=== PATIENT | female | born 1955 | race Caucasian/White ===

== ENCOUNTER 2017-01-09 16:56 | Outpatient (CLI) | payer MEDICARE, MEDICAID ==
--- NOTE | 2017-01-10 09:47 | XRAY Report ---
TWO-VIEW CHEST: 01/09/2017 CLINICAL INDICATION: Cough. FINDINGS: Frontal and lateral views of the chest demonstrate a small hiatal hernia. The cardiac jb houette is not enlarged. The lungs are hyperinflated, compatible with COPD. No focal consolidation, effusion, or pneumothorax is present. IMPRESSION: HYPERINFLATION, SUGGESTIVE OF COPD. SMALL HIATAL HERNIA. JOB #: [id number] EXT JOB #:[id number]
== END 2017-01-09 16:57 | disposition home or self-care (01) ==
LOC: DI 16:56
PROVIDERS: ATTEND Internal Medicine
DX: R05 Cough (principal); K44.9 Diaphragmatic hernia without obstruction or gangrene
CPT/HCPCS: 71020

== ENCOUNTER 2017-01-10 15:28 | Outpatient (CLI) | payer MEDICARE, MEDICAID ==
[2017-01-10 15:54] LABS: CREATININE 1.1 mg/dL (0.4-1.0)
== END 2017-01-10 15:29 | disposition home or self-care (01) ==
LOC: LAB 15:28
PROVIDERS: ATTEND Nurse Practitioner Family
DX: B35.1 Tinea unguium (principal); B35.3 Tinea pedis; Z79.899 Other long term (current) drug therapy
CPT/HCPCS: 36415; 82565; 84450; 84460

== ENCOUNTER 2017-11-24 08:05 | Day surgery (SDC) | payer MEDICARE, MEDICAID ==
[2017-11-24] MEDS ORDERED: LACTATED RINGERS 1,000 ML IV ONE (09:07)
[2017-11-24] MEDS ORDERED: fentaNYL 250 MCG/5 ML VIAL IVP ONE (09:30)
[2017-11-24] MEDS ORDERED: MIDAZOLAM 2 MG/2 ML VIAL IVP ONE (09:30)
[2017-11-24 10:57] VITALS: BP 111/77
== END 2017-11-24 08:06 | disposition home or self-care (01) ==
LOC: SDS 08:05
PROVIDERS: ATTEND Surgery
PROC: 0DBN8ZZ Excision of Sigmoid Colon, Via Natural or Artificial Opening Endoscopic (ICD-10-PCS; 2017-11-24)
PROC: 0DBP8ZZ Excision of Rectum, Via Natural or Artificial Opening Endoscopic (ICD-10-PCS; principal; 2017-11-24 09:00)
DX: K52.9 Noninfective gastroenteritis and colitis, unspecified (principal); K57.30 Diverticulosis of large intestine without perforation or abscess without bleeding; D12.5 Benign neoplasm of sigmoid colon; K62.1 Rectal polyp; F17.210 Nicotine dependence, cigarettes, uncomplicated; I10 Essential (primary) hypertension
CPT/HCPCS: 45385; J3010; J7120

== ENCOUNTER 2018-07-29 16:12 | Emergency (ER) | payer MEDICARE, MEDICAID ==
--- NOTE | 2018-07-29 16:27 | ED Physician Documentation ---
PD HPI URI - Stated complaint Stated Complaint: TIGHNESS CHEST,COUGH,DIZZY - History obtained from History obtained from: Patient - History of Present Illness Timing - onset: Other (This is a 63-year-old long-standing smoker who had runny nose and sore throat and as of last night has minimally productive cough and worries about pneumonia. She denies shortness of breath or fevers.) Review of Systems Constitutional: denies: Fever, Chills, Myalgias Nose: reports: Rhinorrhea / runny nose Cardiac: reports: Chest pain / pressure (only with cough) Respiratory: reports: Cough. 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: Hysterectomy Neuro: Craniotomy HEENT: Other Derm: Other - Present Medications Home Medications: Ambulatory Orders Medication Instructions Recorded Confirmed Carvedilol 6.25 mg PO DAILY 11/21/17 11/24/17 Cholecalciferol [Vitamin D3] 5,000 units PO DAILY 11/21/17 11/24/17 Citalopram Hydrobromide 2 mg PO DAILY 11/21/17 11/24/17 [Citalopram HBr] Lisinopril 5 mg PO DAILY 11/21/17 11/24/17 Lorazepam [Ativan] 1 mg PO TID 11/21/17 11/24/17 Omeprazole [PriLOSEC] 20 mg PO DAILY 11/21/17 11/24/17 Spironolactone 25 mg PO DAILY 11/21/17 11/24/17 Multivitamin [Multiple Vitamins] 1 DAILY 11/24/17 Albuterol Sulf [Ventolin Hfa 1 - 2 puffs INH Q4HR PRN #1 inhaler 07/29/18 Inhaler] Azithromycin [Zithromax] 1 tab PO DAILY #6 tablet 07/29/18 guaiFENesin/CODEINE [Robitussin AC] 5 - 10 ml PO Q6H PRN #120 ml 07/29/18 - Allergies Allergies/Adverse Reactions: Allergies Allergy/AdvReac Type Severity Reaction Status Date / Time Penicillins Allergy Rash Verified 11/21/17 10:49 bacitracin AdvReac Unknown Verified 11/21/17 10:49 [From Neosporin ([id number])] mold AdvReac Respiratory Verified 11/21/17 10:49 neomycin AdvReac Unknown Verified 11/21/17 10:49 [From Neosporin (ekg-ojp-hifac)] polymyxin B AdvReac Unknown Verified 11/21/17 10:49 [From Neosporin ([id number]-[id number]-wnhsx)] PD ED PE NORMAL - Vitals Vital signs reviewed: Yes (Unremarkable) - General General: Alert and oriented X 3, No acute distress - HEENT HEENT: Pharynx benign, Other (ROm) - Neck Neck: Supple, no meningeal sign, No bony TTP - Cardiac Cardiac: RRR, No murmur - Respiratory Respiratory: Other (Mild bibasilar rhonchi and expiratory wheezes without focal findings) - Abdomen Abdomen: Non tender - Extremities Extremities: No edema, No calf tenderness / cord - Neuro Neuro: Alert and oriented X 3, Normal speech PD MEDICAL DECISION MAKING - ED course ED course: 63-year-old woman who is a long-standing smoker presents with what sound like bronchitis associated with right otitis media. There may or may not be some underlying COPD but there is no evidence of pneumonia. She is treated with Zithromax, albuterol, and codeine. Departure - Departure Disposition: 01 Home, Self Care Clinical Impression: Bronchitis ROM (right otitis media) Qualifiers: Otitis media type: suppurative Chronicity: acute Recurrence: non-recurrent Spontaneous tympanic membrane rupture: without spontaneous rupture Qualified Code(s): H66.001 - Acute suppurative otitis media without spontaneous rupture of ear drum, right ear Condition: Good Record reviewed to determine appropriate education?: Yes Instructions: ED Bronchitis Asthmatic, ED Smoking Cessation Prescriptions: Albuterol Sulf [Ventolin Hfa Inhaler] 1 - 2 puffs INH Q4HR PRN #1 inhaler PRN Reason: Shortness Of Air/Wheezing Azithromycin [Zithromax] 1 tab PO DAILY #6 tablet guaiFENesin/CODEINE [Robitussin AC] 5 - 10 ml PO Q6H PRN #120 ml PRN Reason: Cough Comments: Call your doctor to arrange a follow-up appointment, make the next available a ppointment. In the interim, return anytime if worse or if new symptoms develop.
[2018-07-29 16:28] VITALS: BP 106/85
== END 2018-07-29 16:46 | disposition home or self-care (01) ==
LOC: ED 16:12
DX: J40 Bronchitis, not specified as acute or chronic (principal); H66.001 Acute suppurative otitis media without spontaneous rupture of ear drum, right ear; F17.200 Nicotine dependence, unspecified, uncomplicated
CPT/HCPCS: 99283

== ENCOUNTER 2019-01-25 17:31 | Outpatient (CLI) | payer MEDICARE, MEDICAID ==
--- NOTE | 2019-01-26 11:41 | XRAY Report ---
Reason: COUGH R05 Procedure Date: 01/25/2019 Accession Number: [id number] / [id number] Procedure: XR - Chest 2 View X-Ray CPT Code: 37927 FULL RESULT: EXAM: CHEST RADIOGRAPHY EXAM DATE: 01/25/2019 06:17 PM. CLINICAL HISTORY: Cough. Sick for two weeks, responded to antibiotics then got worse and has continued to decline. COMPARISON: CHEST 2 VIEW PA/LAT 01/09/2017 4:58 PM. TECHNIQUE: 2 views. FINDINGS: Lungs/Pleura: No focal opacities evident. No pleural effusion. No pneumothorax. Normal volumes. Mediastinum: Heart and mediastinal contours are unremarkable. Other: None. IMPRESSION: No acute cardiopulmonary abnormality detected. RADIA
== END 2019-01-25 17:32 | disposition home or self-care (01) ==
LOC: DI 17:31
PROVIDERS: ATTEND Internal Medicine
DX: R05 Cough (principal)
CPT/HCPCS: 71046

== ENCOUNTER 2019-05-28 18:33 | Outpatient (CLI) | payer MEDICARE, MEDICAID ==
--- NOTE | 2019-05-28 19:36 | XRAY Report ---
Reason: Unspecified injury of right foot Procedure Date: 05/28/2019 Accession Number: [id number] / [id number] Procedure: XR - Foot 3 View RT CPT Code: Final Report FULL RESULT: EXAM: RIGHT FOOT RADIOGRAPHY EXAM DATE: 05/28/2019 06:54 PM. CLINICAL HISTORY: Unspecified injury of right foot. COMPARISON: None. TECHNIQUE: 3 views. FINDINGS: Bones: Normal. No fractures or bone lesions. Joints: Normal. No subluxations. Soft Tissues: Normal. No soft tissue swelling. IMPRESSION: Normal foot radiography. No fractures. RADIA The call report notification system was initiated by Dr. Bo Burgess at 07:37 PM on 05/28/2019.
== END 2019-05-28 18:34 | disposition home or self-care (01) ==
LOC: DI 18:33
PROVIDERS: ATTEND Internal Medicine
DX: S99.921A Unspecified injury of right foot, initial encounter (principal)

== ENCOUNTER 2019-06-10 14:56 | Emergency (ER) | payer MEDICARE, MEDICAID ==
[2019-06-10] MEDS ORDERED: ADENOSINE 6 MG/2 ML VIAL IVP ONE (15:55)
--- NOTE | 2019-06-10 16:16 | ED Physician Documentation ---
History of Present Illness - Stated complaint Stated Complaint: SOA - Chief complaint Chief Complaint: Cardiac - History obtained from History obtained from: Patient - Additonal information Additional information: Patient comes emergency department with chief complaint of tachycardia. The patient states she has a history of SVT and has been going in and out of it for the last month. Her last episode before this was 7 years ago. Patient states she went to her doctor's office and was found to have a very fast heart rate, so she was sent here. Patient denies any chest pain or shortness of breath. No nausea or vomiting. No lightheadedness or dizziness. Patient states that she is never had to be on any medications for her SVT. She states initially, she was kept in the hospital for 3 days, but ended up being sent home. She does not currently follow with a crime lab analyst. No other complaints at this time. The patient has not felt ill with anything. Review of Systems Ten Systems: 10 systems reviewed and negative Constitutional: reports: Reviewed and negative Eyes: reports: Reviewed and negative Ears: reports: Reviewed and negative Nose: reports: Reviewed and negative Throat: reports: Reviewed and negative Cardiac: reports: Reviewed and negative Respiratory: reports: Reviewed and negative GI: reports: Reviewed and negative : reports: Reviewed and negative Skin: reports: Reviewed and negative Musculoskeletal: reports: Reviewed and negative Neurologic: reports: Reviewed and negative Psychiatric: reports: Reviewed and negative Endocrine: reports: Reviewed and negative Immunocompromised: reports: Reviewed and negative PD PAST MEDICAL HISTORY - Past Medical History Cardiovascular: Other Respiratory: None Neuro: Other Endocrine/Autoimmune: None GI: None 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: None : None HEENT: Chronic vision loss Psych: Anxiety, Panic attacks, Post traumatic stress disorder Musculoskeletal: None Derm: Other - Past Surgical History Past Surgical History: Yes Ortho: ACL reconstruction /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: Hysterectomy Neuro: Craniotomy HEENT: Other Derm: Other - Present Medications Home Medications: Ambulatory Orders Medication Instructions Recorded Confirmed Cholecalciferol [Vitamin D3] 5,000 units PO DAILY 11/21/17 11/24/17 Citalopram Hydrobromide 2 mg PO DAILY 11/21/17 11/24/17 [Citalopram HBr] Lorazepam [Ativan] 1 mg PO TID 11/21/17 11/24/17 Omeprazole [PriLOSEC] 20 mg PO DAILY 11/21/17 11/24/17 Spironolactone 25 mg PO DAILY 11/21/17 11/24/17 carvediloL [Carvedilol] 6.25 mg PO DAILY 11/21/17 11/24/17 lisinopriL [Lisinopril] 5 mg PO DAILY 11/21/17 11/24/17 Multivitamin [Multiple Vitamins] 1 DAILY 11/24/17 Albuterol Sulf [Ventolin Hfa 1 - 2 puffs INH Q4HR PRN #1 inhaler 07/29/18 Inhaler] Azithromycin [Zithromax] 1 tab PO DAILY #6 tablet 07/29/18 guaiFENesin/CODEINE [Robitussin AC] 5 - 10 ml PO Q6H PRN #120 ml 07/29/18 - Allergies Allergies/Adverse Reactions: Allergies Allergy/AdvReac Type Severity Reaction Status Date / Time indomethacin Allergy Unknown Verified 06/10/19 15:01 Penicillins Allergy Rash Verified 06/10/19 15:01 bacitracin AdvReac Unknown Verified 06/10/19 15:01 [From Neosporin ([id number])] mold AdvReac Respiratory Verified 06/10/19 15:01 neomycin AdvReac Unknown Verified 06/10/19 15:01 [From Neosporin (lyu-fas-hlqay)] polymyxin B AdvReac Unknown Verified 06/10/19 15:01 [From Neosporin ([id number]-yki-[id number])] - Social History Does the pt smoke?: Yes Smoking Status: Current every day smoker Does the pt drink ETOH?: No Does the pt have substance abuse?: No - Immunizations Immunizations are current?: Yes - POLST Patient has POLST: No PD ED PE NORMAL - Vitals Vital signs reviewed: Yes - General General: Alert and oriented X 3, No acute distress - HEENT HEENT: PERRL - Neck Neck: Supple, no meningeal sign - Cardiac Cardiac: No murmur, Strong equal pulses, Other (Patient Is tachycardic with regular rhythm.) - Respiratory Respiratory: No respiratory distress, Clear bilaterally - Abdomen Abdomen: Soft, Non tender, Non distended - Derm Derm: Warm and dry - Extremities Extremities: No deformity - Neuro Neuro: Alert and oriented X 3, 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, No motor deficit, No sensory deficit, Normal speech - Psych Psych: Normal mood, Normal affect Results - Vitals Vitals: Vital Signs - 24 hr 06/10/19 06/10/19 06/10/19 15:01 15:45 16:06 Temperature 37 C 36.5 C Heart Rate 163 H 161 H 150 H Respiratory 24 15 28 H Rate Blood Pressure 114/91 H 89/76 L 74/63 L O2 Saturation 99 98 06/10/19 06/10/19 06/10/19 16:16 16:22 16:30 Temperature Heart Rate 96 98 98 Respiratory 25 H 21 21 Rate Blood Pressure 123/104 H 91/71 88/66 L O2 Saturation 100 99 96 06/10/19 06/10/19 06/10/19 17:00 17:30 18:00 Temperature Heart Rate 95 89 93 Respiratory 18 17 Rate Blood Pressure 89/63 L 100/72 93/70 O2 Saturation 94 100 06/10/19 06/10/19 18:30 18:51 Temperature 36.7 C Heart Rate 88 89 Respiratory 18 20 Rate Blood Pressure 96/69 99/66 O2 Saturation 100 94 Oxygen O2 Source Room air - EKG (time done) 1506 Rate: Rate (enter#) (163), Tachy Rhythm: SVT Andrews: LAD Intervals: Normal NE. No: Wide QRS QRS: Normal Ischemia: Normal ST segments Computer interpretation: Agree with computer - Labs Labs: Laboratory Tests 06/10/19 06/10/19 06/10/19 16:26 16:26 16:26 WBC 9.2 RBC 4.15 L Hgb 12.2 Hct 37.5 MCV 90.4 MCH 29.4 MCHC 32.5 RDW 12.0 Plt Count 294 MPV 10.0 Neut # (Auto) 5.5 Lymph # (Auto) 2.8 [place] # (Auto) 0.7 Eos # (Auto) 0.2 Baso # (Auto) 0.1 Absolute Nucleated RBC 0.00 Nucleated RBC % 0.0 Sodium 136 Potassium 5.0 Chloride 104 Carbon Dioxide 23 Anion Gap 9.0 BUN 29 H Creatinine 1.8 H Estimated GFR (MDRD) 29 L Glucose 93 Calcium 8.9 Total Bilirubin 0.6 AST 22 ALT 15 Alkaline Phosphatase 57 Troponin I High Sens 8.9 Total Protein 7.3 Albumin 3.8 Globulin 3.5 Albumin/Globulin Ratio 1.1 Lipase 37 Procedures - Cardioversion Attempt 1 Indication: Tachyarrhythmia Risks, benefits, alternatives explained to: Pt Prep: IV, O2, property developer, Pulse ox Meds: Adenocard (6 mg pushed for SVT, with good response.) Post cardioversion rhythm: NSR Complications: No: Other Performed by: ED MD GRIMM MEDICAL DECISION MAKING - ED course Complexity details: reviewed old records, reviewed results, re-evaluated patient, considered differential, d/w patient ED course: Patient was brought back to the emergency department and placed on the cask maker, which showed a regular, narrow complex rhythm as interpreted by EDMD. Twelve-lead EKG was performed and showed SVT. This was consistent with the patient's prior history.IV was started by myself in the left external jugular vein after nursing staff was unsuccessful in getting the more peripheral IV. 6 mg of adenosine was pushed through the IV with good response, with patient initially converted into sinus tachycardia in the low 100s and eventually, going into normal sinus rhythm.She was worked up with laboratory studies, Which were unremarkable, including troponin.On reevaluation, the patient is found to be feeling much better and had maintained a normal sinus rhythm. Her systolic blood pressure had stabilized in the 90s and patient denied any lightheadedness or dizziness. She was able to ambulate in the emergency department without difficulty.Discussed that it is very important for her to follow-up with her primary care physician, and I have also referred the patient to cardiology. We have discussed home management of symptoms, as well as the usual indications for return. - Critical Care Time(min): 40 Comments: Critical care was necessary to treat unstable tachyarrhythmia with hypotension, and to prevent imminent decline and significant possibility of . Time Includes: Direct patient care, Review records, Reassess patient, Document care, Coordinate care, See progress note Data interpretation: Labs, Pulse ox, Prior EKG, Cardiac output, See progress note Procedures included in critical care time: Peripheral IV Departure - Departure Disposition: 01 Home, Self Care Clinical Impression: SVT (supraventricular tachycardia) Condition: Good Instructions: ED Tachycardia Pat PSVT Follow-Up: Odalis Martinez MD [Primary Care Provider] - Stanley Rojas MD [Physician No Access] - Comments: You were given a special medicine today to slow your heart rate down. This worked very well, and thankfully. Hopefully, you will not go back into this rhythm. However, if you do, you will need to return to the emergency department if your heart does not spontaneously go back to normal rhythm. It is very important that you follow-up with your primary care physician and cardiology to discuss what further should be done to prevent your episodes of SVT. Please be sure to get plenty of fluids and nutritious food to optimize her underlying health. You may exercise as much as you can tolerateTo further benefit your health.If you develop chest pain, shortness of breath, or severely racing heart again, please return to the emergency department immediately. Discharge Date/Time: 06/10/19 19:06
[2019-06-10 16:35] LABS: BASOPHILS # (AUTO) 0.1 10^3/uL (0.0-0.1); BASOPHILS % (AUTO) 0.5 %; EOSINOPHILS # (AUTO) 0.2 10^3/uL (0.0-0.7); EOSINOPHILS % (AUTO) 2.4 %; HGB - HEMOGLOBIN 12.2 g/dL (12.0-16.0); LYMPHOCYTES # (AUTO) 2.8 10^3/uL (1.5-3.5); LYMPHOCYTES % (AUTO) 29.8 %; MEAN CORPUSCULAR HEMOGLOBIN 29.4 pg (27.0-31.0); MEAN CORPUSCULAR HGB CONC 32.5 g/dL (32.0-36.0); MEAN CORPUSCULAR VOLUME 90.4 fL (81.0-99.0); MONOCYTES # (AUTO) 0.7 10^3/uL (0.0-1.0); NEUTROPHILS # (AUTO) 5.5 10^3/uL (1.5-6.6); NEUTROPHILS % (AUTO) 59.9 %; PLT - PLATELET COUNT 294 10^3/uL (130-450); RED BLOOD COUNT 4.15 10^6/uL (4.20-5.40); WHITE BLOOD COUNT 9.2 x10^3/uL (4.8-10.8)
[2019-06-10 16:48] LABS: ALBUMIN 3.8 g/dL (3.2-5.5); ALBUMIN/GLOBULIN RATIO 1.1 (1.0-2.2); BILIRUBIN,TOTAL 0.6 mg/dL (0.2-1.0); CALCIUM 8.9 mg/dL (8.5-10.3); CREATININE 1.8 mg/dL (0.4-1.0); TOTAL PROTEIN 7.3 g/dL (6.7-8.2)
[2019-06-10] MEDS ORDERED: SODIUM CHLORIDE 0.9% 1,000 ML IV ONE (17:10)
[2019-06-10] MEDS ORDERED: ADENOSINE 6 MG/2 ML VIAL IVP STA (18:49)
[2019-06-10 18:52] VITALS: BP 99/66
== END 2019-06-10 19:06 | disposition home or self-care (01) ==
LOC: ED 14:56
DX: I47.1 Supraventricular tachycardia (principal); F17.200 Nicotine dependence, unspecified, uncomplicated
CPT/HCPCS: 36415; 80053; 83690; 84484; 85025; 99285; 99291; J0153; 93005

== ENCOUNTER 2020-01-18 17:10 | Emergency (ER) | payer MEDICARE, MEDICAID ==
[2020-01-18] MEDS ORDERED: DEXAMETHASONE 10 MG/ML VIAL IVP STA (17:28)
[2020-01-18] MEDS ORDERED: IPRATROPIUM/ALBUTEROL 3 ML NEB INH STA (17:28)
[2020-01-18] MEDS ORDERED: diphenhydrAMINE INJ 50 MG/ML VIAL IVP STA (17:28)
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
[2020-01-18 17:48] LABS: BASOPHILS # (AUTO) 0.1 10^3/uL (0.0-0.1); BASOPHILS % (AUTO) 0.7 %; EOSINOPHILS # (AUTO) 0.2 10^3/uL (0.0-0.7); EOSINOPHILS % (AUTO) 2.8 %; HGB - HEMOGLOBIN 12.5 g/dL (12.0-16.0); LYMPHOCYTES % (AUTO) 27.6 %; MEAN CORPUSCULAR HEMOGLOBIN 30.1 pg (27.0-31.0); MEAN CORPUSCULAR HGB CONC 33.3 g/dL (32.0-36.0); MEAN CORPUSCULAR VOLUME 90.4 fL (81.0-99.0); MEAN PLATELET VOLUME 9.5 fL (7.9-10.8); MONOCYTES # (AUTO) 0.5 10^3/uL (0.0-1.0); MONOCYTES % (AUTO) 7.2 %; NEUTROPHILS # (AUTO) 4.4 10^3/uL (1.5-6.6); NEUTROPHILS % (AUTO) 61.4 %; PLT - PLATELET COUNT 272 10^3/uL (130-450); RED BLOOD COUNT 4.15 10^6/uL (4.20-5.40); RED CELL DISTRIBUTION WIDTH 12.7 % (12.0-15.0); WHITE BLOOD COUNT 7.1 x10^3/uL (4.8-10.8)
--- NOTE | 2020-01-18 17:53 | XRAY Report ---
PROCEDURE: Chest 1 View X-Ray INDICATIONS: soa TECHNIQUE: One view of the chest was acquired. COMPARISON: 04/17/2015 FINDINGS: Surgical changes and devices: None. Lungs and pleura: No pleural effusions or pneumothorax. Lungs are clear. Mediastinum: Mediastinal contours appear normal. Heart size is normal. Bones and chest wall: No suspicious bony lesions. Overlying soft tissues appear unremarkable. IMPRESSION: Stable examination of the chest without acute cardiopulmonary abnormalities Reviewed by: Jonathan Hill MD on 01/18/2020 5:52 PM PDT Approved by: Jonathan Hill MD on 01/18/2020 5:52 PM PDT Station ID: [id number]
[2020-01-18 18:02] LABS: ALBUMIN 4.4 g/dL (3.2-5.5); ALBUMIN/GLOBULIN RATIO 1.3 (1.0-2.2); CALCIUM 9.4 mg/dL (8.5-10.3); CREATININE 1.1 mg/dL (0.4-1.0); TOTAL PROTEIN 7.9 g/dL (6.7-8.2)
[2020-01-18 18:58] VITALS: BP 132/87
== END 2020-01-18 19:03 | disposition home or self-care (01) ==
LOC: ED 17:10
DX: J44.1 Chronic obstructive pulmonary disease with (acute) exacerbation (principal); J45.21 Mild intermittent asthma with (acute) exacerbation; J70.8 Respiratory conditions due to other specified external agents; Z77.120 Contact with and (suspected) exposure to mold (toxic); Z91.048 Other nonmedicinal substance allergy status; F17.200 Nicotine dependence, unspecified, uncomplicated
CPT/HCPCS: 36415; 71045; 80053; 83690; 83880; 84484; 85025; 94640; 96374; 99284; J1200

== ENCOUNTER 2020-08-15 13:18 | Outpatient (CLI) | payer MEDICARE, MEDICAID | END 2020-08-15 13:19 | disposition home or self-care (01) | LOC: RT 13:18 | PROVIDERS: ATTEND Internal Medicine | DX: J45.909 Unspecified asthma, uncomplicated (principal) | CPT/HCPCS: 94060; 94729 ==

== ENCOUNTER 2020-10-27 13:38 | Emergency (ER) | payer MEDICARE, MEDICAID ==
[2020-10-27 14:50] VITALS: BP 108/81
--- NOTE | 2020-10-27 15:07 | XRAY Report ---
PROCEDURE: Chest 2 View X-Ray INDICATIONS: cough TECHNIQUE: 2 view(s) of the chest. COMPARISON: None. FINDINGS: Surgical changes and devices: None. Lungs and pleura: No pleural effusions or pneumothorax. Lungs are clear. Mediastinum: Mediastinal contours are normal. Heart size is normal. Bones and chest wall: No suspicious bony abnormalities. Soft tissues appear unremarkable. IMPRESSION: No acute cardiopulmonary pathology. Reviewed by: David Owens MD on 10/27/2020 3:05 PM PDT Approved by: David Owens MD on 10/27/2020 3:05 PM PDT Station ID: [id number]
[2020-10-27] MEDS ORDERED: DEXAMETHASONE 10 MG/ML VIAL IM STA (15:16)
--- NOTE | 2020-10-27 15:17 | ED Physician Documentation ---
History of Present Illness - Stated complaint Stated Complaint: SOA, COUGH - Chief complaint Chief Complaint: Resp - History obtained from History obtained from: Patient - Additonal information Additional information: 65-year-old woman with past medical history of asthma, anxiety presents with URI symptoms over the past 4 days, cough productive of clear sputum, ear congestion, fullness, sore throat. Patient states she felt short of breath this morning but now feels better in the emergency department without having done any specific treatment. Denies fever, nausea, Chest pain. does endorse fatigue Review of Systems Ten Systems: 10 systems reviewed and negative Constitutional: reports: Fatigue. denies: Fever, Chills Ears: reports: Other (ear fullness) Nose: denies: Rhinorrhea / runny nose, Congestion Throat: reports: Sore throat Cardiac: denies: Chest pain / pressure, Palpitations Respiratory: reports: Dyspnea, Cough GI: denies: Nausea PD PAST MEDICAL HISTORY - Past Medical History Past Medical History: Yes Cardiovascular: Other Respiratory: None Neuro: Other Endocrine/Autoimmune: None GI: None PEDIATRIC CARE COORDINATOR: None : None HEENT: Chronic vision loss Psych: Anxiety, Panic attacks, Post traumatic stress disorder Musculoskeletal: None Derm: Other - Past Surgical History Past Surgical History: Yes Ortho: ACL reconstruction /PEDIATRIC CARE COORDINATOR: Hysterectomy Neuro: Craniotomy HEENT: Other Derm: Other - Present Medications Home Medications: Ambulatory Orders Medication Instructions Recorded Confirmed Cholecalciferol [Vitamin D3] 5,000 units PO DAILY 11/21/17 11/24/17 Citalopram Hydrobromide 2 mg PO DAILY 11/21/17 11/24/17 [Citalopram HBr] Lorazepam [Ativan] 1 mg PO TID 11/21/17 11/24/17 Omeprazole [PriLOSEC] 20 mg PO DAILY 11/21/17 11/24/17 Spironolactone 25 mg PO DAILY 11/21/17 11/24/17 carvediloL [Carvedilol] 6.25 mg PO DAILY 11/21/17 11/24/17 lisinopriL [Lisinopril] 5 mg PO DAILY 11/21/17 11/24/17 Multivitamin [Multiple Vitamins] 1 DAILY 11/24/17 Albuterol Sulf [Ventolin Hfa 1 - 2 puffs INH Q4HR PRN #1 inhaler 07/29/18 Inhaler] Azithromycin [Zithromax] 1 tab PO DAILY #6 tablet 07/29/18 guaiFENesin/CODEINE [Robitussin AC] 5 - 10 ml PO Q6H PRN #120 ml 07/29/18 predniSONE [Deltasone] 10 mg PO ONCE #26 tablet 01/18/20 - Allergies Allergies/Adverse Reactions: Allergies Allergy/AdvReac Type Severity Reaction Status Date / Time indomethacin Allergy Unknown Verified 10/27/20 13:54 Penicillins Allergy Rash Verified 10/27/20 13:54 bacitracin AdvReac Unknown Verified 10/27/20 13:54 [From Neosporin ([id number])] mold AdvReac Respiratory Verified 10/27/20 13:54 neomycin AdvReac Unknown Verified 10/27/20 13:54 [From Neosporin (uhc-bpp-[id number])] polymyxin B AdvReac Unknown Verified 10/27/20 13:54 [From Neosporin ([id number])] - Social History Does the pt smoke?: Yes Smoking Status: Current every day smoker Does the pt drink ETOH?: No Does the pt have substance abuse?: No - Immunizations Immunizations are current?: Yes - POLST Patient has POLST: No PD ED PE NORMAL - Vitals Vital signs reviewed: Yes - General General: Alert and oriented X 3, No acute distress, Well developed/nourished - HEENT HEENT: Atraumatic, PERRL, EOMI, Ears normal, Moist mucous membranes, Other (Mild oropharyngeal erythema. tms clear) - Neck Neck: Supple, no meningeal sign - Cardiac Cardiac: RRR - Respiratory Respiratory: No respiratory distress, Clear bilaterally - Abdomen Abdomen: Non tender, Non distended - Derm Derm: Normal color, Warm and dry - Extremities Extremities: No edema - Neuro Neuro: Alert and oriented X 3 - Psych Psych: Normal mood, Normal affect Results - Vitals Vitals: Vital Signs - 24 hr 10/27/20 10/27/20 13:49 14:48 Temperature 37.3 C Heart Rate 95 81 Respiratory 28 H 20 Rate Blood Pressure 96/67 108/81 H O2 Saturation 97 95 Oxygen O2 Source Room air PD MEDICAL DECISION MAKING - ED course ED course: 55-year-old woman presented with productive cough, sore throat, ear fullness and subjective shortness of breath that resolved in the emergency department without any specific treatment. Symptomatic management discussed. Decadron administered for viral URI symptoms. Lung exam normal and chest x-ray clear. Patient will follow up with her primary doctor. Return precautions given. Departure - Departure Disposition: 01 Home, Self Care Clinical Impression: URI (upper respiratory infection) Condition: Good Instructions: ED Viral Syndrome Comments: You were seen in the emergency department for shortness of breath. Your chest x-ray was normal and your EKG was normal. Make sure that you drink 8 to 10 glasses of water daily, get lots of rest, use a humidifier, and return to the emergency department if you have any new or worsening symptoms or other concerns. Follow-up with your primary doctor this week.
== END 2020-10-27 15:38 | disposition home or self-care (01) ==
LOC: ED 13:38
DX: J06.9 Acute upper respiratory infection, unspecified (principal); F17.200 Nicotine dependence, unspecified, uncomplicated
CPT/HCPCS: 93005; 96372; 99283; 99284

== ENCOUNTER 2021-02-25 15:14 | Emergency (ER) | payer MEDICARE, MEDICAID ==
[2021-02-25] MEDS ORDERED: IPRATROPIUM/ALBUTEROL 3 ML NEB INH STA (15:33)
[2021-02-25] MEDS ORDERED: LORazepam 1 MG TABLET PO STA (15:33)
[2021-02-25] MEDS ORDERED: predniSONE 20 MG TABLET PO STA (15:33)
--- NOTE | 2021-02-25 15:34 | ED Physician Documentation ---
PD HPI DYSPNEA - Stated complaint Stated Complaint: SOA - Chief complaint Chief Complaint: Resp - History obtained from History obtained from: Patient - Additional information Additional information: 66-year-old woman with longstanding tobacco use presents with shortness of breath starting today. They were ripping up the floors in her fifth wheel trailer and she was exposed to mold and she feels like that is what started it. She took a rescue inhaler without relief. She is also feeling a lot of anxiety. There is a minimal nonproductive cough. No chest pain. No pedal edema or calf pain. 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 : None HEENT: Chronic vision loss Psych: Anxiety, Panic attacks, Post traumatic stress disorder Musculoskeletal: None Derm: Other - Past Surgical History Past Surgical History: Yes Ortho: ACL reconstruction /PLASTICS WORKER: Hysterectomy Neuro: Craniotomy HEENT: Other Derm: Other - Present Medications Home Medications: Ambulatory Orders Medication Instructions Recorded Confirmed Cholecalciferol [Vitamin D3] 5,000 units PO DAILY 11/21/17 11/24/17 Citalopram Hydrobromide 2 mg PO DAILY 11/21/17 11/24/17 [Citalopram HBr] Lorazepam [Ativan] 1 mg PO TID 11/21/17 11/24/17 Omeprazole [PriLOSEC] 20 mg PO DAILY 11/21/17 11/24/17 Spironolactone 25 mg PO DAILY 11/21/17 11/24/17 carvediloL [Carvedilol] 6.25 mg PO DAILY 11/21/17 11/24/17 lisinopriL [Lisinopril] 5 mg PO DAILY 11/21/17 11/24/17 Multivitamin [Multiple Vitamins] 1 DAILY 11/24/17 Albuterol Sulf [Ventolin Hfa 1 - 2 puffs INH Q4HR PRN #1 inhaler 07/29/18 Inhaler] Azithromycin [Zithromax] 1 tab PO DAILY #6 tablet 07/29/18 guaiFENesin/CODEINE [Robitussin AC] 5 - 10 ml PO Q6H PRN #120 ml 07/29/18 predniSONE [Deltasone] 10 mg PO ONCE #26 tablet 01/18/20 Ipratropium/Albuterol [Duoneb] 3 ml INH Q6H PRN #1 unit 02/25/21 Nebulizer and Compressor 1 each MC ONCE #1 each 02/25/21 [Compressor Nebulizer System] predniSONE [Deltasone] 20 mg PO [id number] #21 tab 02/25/21 - Allergies Allergies/Adverse Reactions: Allergies Allergy/AdvReac Type Severity Reaction Status Date / Time indomethacin Allergy Unknown Verified 02/25/21 15:21 Penicillins Allergy Rash Verified 02/25/21 15:21 bacitracin AdvReac Unknown Verified 02/25/21 15:21 [From Neosporin ([id number]-[id number])] mold AdvReac Respiratory Verified 02/25/21 15:21 neomycin AdvReac Unknown Verified 02/25/21 15:21 [From Neosporin ([id number]-[id number]-[id number])] polymyxin B AdvReac Unknown Verified 02/25/21 15:21 [From Neosporin ([id number])] - Social History Does the pt smoke?: Yes Smoking Status: Current every day smoker Does the pt drink ETOH?: No Does the pt have substance abuse?: No - Immunizations Immunizations are current?: Yes - POLST Patient has POLST: No PD ED PE NORMAL - Vitals Vital signs reviewed: Yes - General General: Alert and oriented X 3 (She is tachypneic, but speaking in full sentences. She appears quite anxious.) - HEENT HEENT: Pharynx benign - Neck Neck: Supple, no meningeal sign, No bony TTP - Cardiac Cardiac: RRR, No murmur - Respiratory Respiratory: Other (Tachypneic, mild expiratory wheezes but overall generally very good air motion.) - Abdomen Abdomen: Non tender - Neuro Neuro: Alert and oriented X 3, Normal speech Results - Vitals Vitals: Vital Signs - 24 hr 02/25/21 02/25/21 15:16 15:46 Temperature 36.1 C L Heart Rate 104 H 95 Respiratory 30 H 18 Rate Blood Pressure 119/100 H O2 Saturation 100 Oxygen O2 Source Room air PD MEDICAL DECISION MAKING - ED course ED course: 66-year-old woman presents with shortness of breath, probably some underlying COPD. Nonfocal lung sounds no evidence of pneumonia. After some Ativan, prednisone, and DuoNeb she felt much better. On reexamination her lungs were all but clear. Nonlabored. Departure - Departure Disposition: Home, Self Care Clinical Impression: Allergic asthma with acute exacerbation Qualifiers: Asthma severity: severe Asthma persistence: persistent Qualified Code(s): J45.51 - Severe persistent asthma with (acute) exacerbation Condition: Good Record reviewed to determine appropriate education?: Yes Instructions: Asthma Dc Prescriptions: Nebulizer and Compressor [Compressor Nebulizer System] 1 each MC ONCE #1 each predniSONE [Deltasone] 20 mg PO [id number] #21 tab Ipratropium/Albuterol [Duoneb] 3 ml INH Q6H PRN #1 unit PRN Reason: Dyspnea Comments: Call your doctor to arrange a follow-up appointment, make the next available appointment. In the interim, return anytime if worse or if new symptoms develop.
[2021-02-25 16:22] VITALS: BP 104/74
== END 2021-02-25 16:49 | disposition home or self-care (01) ==
LOC: ED 15:14
DX: J45.51 Severe persistent asthma with (acute) exacerbation (principal); F17.200 Nicotine dependence, unspecified, uncomplicated
CPT/HCPCS: 94640; 94664; 99283; J7512; J8499

== ENCOUNTER 2022-03-04 15:54 | Outpatient (CLI) | payer MEDICARE, MEDICAID ==
--- NOTE | 2022-03-05 10:04 | XRAY Report ---
PROCEDURE: Chest 2 View X-Ray INDICATIONS: DYSPNEA TECHNIQUE: 2 views of the chest were acquired. COMPARISON: Two-view chest, 04/29/2009 FINDINGS: Surgical changes and devices: None. Lungs and pleura: There is interstitial prominence, unchanged. No focal consolidation. No pleural ef fusions or pneumothorax. Mediastinum: Mediastinal contours are normal. Heart size is normal. Bones and chest wall: No suspicious bony abnormalities. Soft tissues appear unremarkable. IMPRESSION: 1. No acute cardiopulmonary disease. 2. Interstitial prominence. Reviewed by: Beltran Rebolledo MD on 03/05/2022 10:03 AM [facility] Approved by: Beltran Rebolledo MD on 03/05/2022 10:03 AM [facility] Station ID: [id number]
== END 2022-03-04 15:55 | disposition home or self-care (01) ==
LOC: DI.N 15:54
PROVIDERS: ATTEND Internal Medicine
DX: R06.00 Dyspnea, unspecified (principal)

== ENCOUNTER 2022-04-19 16:46 | Outpatient (CLI) | payer MEDICARE, MEDICAID ==
[2022-04-19 20:40] LABS: BASOPHILS # (AUTO) 0.1 10^3/uL (0.0-0.1); BASOPHILS % (AUTO) 0.8 %; EOSINOPHILS # (AUTO) 0.2 10^3/uL (0.0-0.7); EOSINOPHILS % (AUTO) 2.3 %; HCT - HEMATOCRIT 41.9 % (37.0-47.0); LYMPHOCYTES # (AUTO) 1.5 10^3/uL (1.5-3.5); LYMPHOCYTES % (AUTO) 23.3 %; MEAN CORPUSCULAR HEMOGLOBIN 28.1 pg (27.0-31.0); MEAN CORPUSCULAR VOLUME 90.5 fL (81.0-99.0); MEAN PLATELET VOLUME 10.2 fL (7.9-10.8); MONOCYTES # (AUTO) 0.4 10^3/uL (0.0-1.0); MONOCYTES % (AUTO) 5.6 %; NEUTROPHILS # (AUTO) 4.5 10^3/uL (1.5-6.6); NEUTROPHILS % (AUTO) 67.8 %; PLT - PLATELET COUNT 286 10^3/uL (130-450); RED BLOOD COUNT 4.63 10^6/uL (4.20-5.40); RED CELL DISTRIBUTION WIDTH 12.5 % (12.0-15.0); WHITE BLOOD COUNT 6.6 x10^3/uL (4.8-10.8)
[2022-04-19 20:53] LABS: ALBUMIN 4.1 g/dL (3.2-5.5); ALBUMIN/GLOBULIN RATIO 1.1 (1.0-2.2); ALKALINE PHOSPHATASE 65 IU/L (42-121); ALT ALANINE AMINOTRANSFERASE 17 IU/L (10-60); AST ASPARTATE AMINOTRANSFERASE 28 IU/L (10-42); BUN - BLOOD UREA NITROGEN 20 mg/dL (6-20); CALCIUM 9.6 mg/dL (8.5-10.3); CARBON DIOXIDE - CO2 32 mmol/L (21-32); CHLORIDE 99 mmol/L (101-111); CHOL/HDL RATIO 6.1 (<4.4); CHOLESTEROL 322 mg/dL; CREATININE 1.3 mg/dL (0.4-1.0); GFR - MDRD 41 (>89); GLUCOSE 91 mg/dL (70-100); HDL CHOLESTEROL 53 mg/dL; LDL CHOLESTEROL,CALCULATED 239 mg/dL; LDL/HDL RATIO 4.5 (<4.4); POTASSIUM 4.4 mmol/L (3.5-5.0); SODIUM 137 mmol/L (135-145); TOTAL PROTEIN 7.9 g/dL (6.7-8.2); TRIGLYCERIDES 151 mg/dL; VLDL CHOLESTEROL 30 mg/dL
== END 2022-04-19 16:47 | disposition home or self-care (01) ==
LOC: LAB.N 16:46
PROVIDERS: ATTEND Internal Medicine
DX: R07.89 Other chest pain (principal); R06.00 Dyspnea, unspecified; M79.10 Myalgia, unspecified site; Z11.59 Encounter for screening for other viral diseases; Z79.899 Other long term (current) drug therapy
CPT/HCPCS: 36415; 80053; 80061; 83721; 83880; 84443; 85025; 86803

== ENCOUNTER 2022-05-03 15:06 | Outpatient (CLI) | payer MEDICARE, MEDICAID ==
[2022-05-03] MEDS ORDERED: iohexoL-300 100 ML VIAL ONE (15:38)
[2022-05-03] MEDS ORDERED: iohexoL-300 100 ML VIAL IVP ONE (16:30)
--- NOTE | 2022-05-03 17:02 | CT Report ---
PROCEDURE: ANGIO CHEST W/WO INDICATIONS: CHEST PAIN CONTRAST: 80ml omni 300 TECHNIQUE: After the administration of intravenous contrast, 2 mm axial images were acquired from the pulmonary apices to the posterior costophrenic angles during the arterial phase. In addition, 1 mm lung kernel and 5 mm soft tissue kernel reconstructions were performed. 3-dimensional coronal oblique maximum int ensity projection (MIP) reformats, 8 mm axial MIP, and 5 mm coronal and sagittal MPR reformats were t hen performed through the thorax. For radiation dose reduction, the following was used: automated exp osure control, adjustment of mA and/or kV according to patient size. COMPARISON: None FINDINGS: Image quality: Excellent. Pulmonary arteries: Pulmonary arteries are normal in size, and demonstrate no intraluminal filling d efects to suggest central pulmonary embolism. Aorta: The aorta has no aneurysm or dissection. Lungs and pleura: Lungs are clear. No pleural effusions or pneumothorax. Central and peripheral ai rways are patent. Mediastinum: Heart size is normal, without pericardial effusion. No mediastinal or hilar adenopathy . Thoracic aorta is normal in caliber and enhancement. Esophagus is normal in caliber with a modera te sized hiatal hernia.. Bones and chest wall: No suspicious bony lesions. Ribs and thoracic spine appear intact throughout. No axillary or supraclavicular adenopathy. The thyroid is normal in size and there are no incident al findings. Abdomen: Visualized upper abdominal solid organs appear normal in the early arterial phase of enhanc ement. The right kidney has a 2.6 cm simple cyst of the midpole. IMPRESSION: 1. No pulmonary embolism. 2. No aortic aneurysm or dissection 3. Moderate-sized hiatal hernia.. Reviewed by: Ritchie Hyatt on 05/03/2022 5:01 PM PST Approved by: Ritchie Hyatt on 05/03/2022 5:01 PM PST Station ID: [id number]
== END 2022-05-03 15:07 | disposition home or self-care (01) ==
LOC: DI 15:06
PROVIDERS: ATTEND Internal Medicine
DX: R07.89 Other chest pain (principal); R06.00 Dyspnea, unspecified; K44.9 Diaphragmatic hernia without obstruction or gangrene; Z79.899 Other long term (current) drug therapy
CPT/HCPCS: 71275; Q9967

== ENCOUNTER 2022-12-30 18:54 | Emergency (ER) | payer MEDICARE, MEDICAID ==
[2022-12-30] MEDS ORDERED: IPRATROPIUM/ALBUTEROL 3 ML NEB INH STA (20:04)
[2022-12-30] MEDS ORDERED: DEXAMETHASONE 10 MG/ML VIAL PO STA (21:14)
[2022-12-30] MEDS ORDERED: CHERRY SYRUP 10 ML UDC PO ONE (21:14)
--- NOTE | 2022-12-30 21:16 | ED Physician Documentation ---
History of Present Illness - Stated complaint Stated Complaint: SOA,BUMP ON LT LEG - Chief complaint Chief Complaint: Ext Problem - History obtained from History obtained from: Patient - History of Present Illness Timing: Today Pain level max: 0 Pain level now: 0 - Additonal information Additional information: 67-year-old female with a longstanding history of asthma states that she has had increased wheezing and chest tightness recently. She also noticed a small red area to the inside aspect of her left calf. She went to the walk-in clinic and they were concerned about DVT so they sent her here. No history of DVT. She is not on blood thinners. No immobilization. Quit smoking approximately 9 months ago. No fevers. No chills. No cough. 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 HEENT: Chronic vision loss Psych: Anxiety, Panic attacks, Post traumatic stress disorder Musculoskeletal: None Derm: Other - Past Surgical History Past Surgical History: Yes Ortho: ACL reconstruction /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: Hysterectomy Neuro: Craniotomy HEENT: Other Derm: Other - Present Medications Home Medications: Ambulatory Orders Medication Instructions Recorded Confirmed Cholecalciferol [Vitamin D3] 5,000 units PO DAILY 11/21/17 11/24/17 Citalopram Hydrobromide 2 mg PO DAILY 11/21/17 11/24/17 [Citalopram HBr] Lorazepam [Ativan] 1 mg PO TID 11/21/17 11/24/17 Omeprazole [PriLOSEC] 20 mg PO DAILY 11/21/17 11/24/17 Spironolactone 25 mg PO DAILY 11/21/17 11/24/17 carvediloL [Carvedilol] 6.25 mg PO DAILY 11/21/17 11/24/17 lisinopriL [Lisinopril] 5 mg PO DAILY 11/21/17 11/24/17 Multivitamin [Multiple Vitamins] 1 DAILY 11/24/17 Albuterol Sulf [Ventolin Hfa 1 - 2 puffs INH Q4HR PRN #1 inhaler 04/17/19 Inhaler] Azithromycin [Zithromax] 1 tab PO DAILY #6 tablet 07/29/18 guaiFENesin/CODEINE [Robitussin AC] 5 - 10 ml PO Q6H PRN #120 ml 07/29/18 predniSONE [Deltasone] 10 mg PO ONCE #26 tablet 01/18/20 Ipratropium/Albuterol [Duoneb] 3 ml INH Q6H PRN #1 unit 02/25/21 Nebulizer and Compressor 1 each MC ONCE #1 each 02/25/21 [Compressor Nebulizer System] predniSONE [Deltasone] 20 mg PO [id number] #21 tab 02/25/21 predniSONE [Deltasone] 10 mg PO [id number] #42 tab 12/30/22 - Allergies Allergies/Adverse Reactions: Allergies Allergy/AdvReac Type Severity Reaction Status Date / Time indomethacin Allergy Unknown Verified 12/30/22 19:01 Penicillins Allergy Rash Verified 12/30/22 19:01 bacitracin AdvReac Unknown Verified 12/30/22 19:01 [From Neosporin ([id number]-[id number])] mold AdvReac Respiratory Verified 12/30/22 19:01 neomycin AdvReac Unknown Verified 12/30/22 19:01 [From Neosporin ([id number]-vkj-[id number])] polymyxin B AdvReac Unknown Verified 12/30/22 19:01 [From Neosporin ([id number])] - Social History Does the pt smoke?: Yes Smoking Status: Current every day smoker Does the pt drink ETOH?: No Does the pt have substance abuse?: No - Immunizations Immunizations are current?: Yes - POLST Patient has POLST: No PD ED PE NORMAL - Vitals Vital signs reviewed: Yes - General General: Alert and oriented X 3, No acute distress - HEENT HEENT: Moist mucous membranes - Neck Neck: Supple, no meningeal sign - Cardiac Cardiac: RRR - Respiratory Respiratory: No respiratory distress, Other (Diminished breath sounds bilaterally, wheezing diffusely) - Abdomen Abdomen: Soft, Non tender, Non distended - Derm Derm: Warm and dry - Extremities Extremities: No calf tenderness / cord, Other (There is a small area of what appears to be superficial thrombophlebitis with a inflamed varicose vein on the inner aspect of the left calf.) - Neuro Neuro: Alert and oriented X 3 - Psych Psych: Normal mood, Normal affect Results - Vitals Vitals: Vital Signs - 24 hr 12/30/22 12/30/22 12/30/22 19:02 19:43 21:05 Temperature 36.5 C 37 C Heart Rate 99 99 94 Respiratory 20 20 18 Rate Blood Pressure 119/84 H 128/78 123/95 H O2 Saturation 98 96 100 Oxygen O2 Source Room air - Rads (name of study) Duplex ultrasound left lower extremity Relevant Findings:: Final report received, See rad report PD Medical Decision Making - ED course Complexity details: reviewed results, re-evaluated patient, considered differential, d/w patient ED course: 67-year-old female with superficial thrombophlebitis, no DVT. Wheezing resolved with DuoNeb treatment. Will place on steroids for home and continue her albuterol. Patient is well-appearing, nontoxic. Afebrile. No hypoxia. No respiratory distress. Patient counseled regarding signs and symptoms for which I believe and urgent re-evaluation would be necessary. Patient with good understanding of and agreement to plan and is comfortable going home at this time This document was made in part using voice recognition software. While efforts are made to proofread this document, sound alike and grammatical errors may occur. Departure - Departure Disposition: 01 Home, Self Care Clinical Impression: Thrombophlebitis of superficial vein of lower leg Allergic asthma with acute exacerbation Qualifiers: Asthma severity: unspecified severity Asthma persistence: unspecified Qualified Code(s): J45.901 - Unspecified asthma with (acute) exacerbation Condition: Good Instructions: ED Reactive Airway Disease, ED Phlebitis Superficial Follow-Up: Odalis Martinez MD [Primary Care Provider] - Prescriptions: predniSONE [Deltasone] 10 mg PO [id number] #42 tab Comments: There is no evidence of deep venous thrombosis in your leg. You do have a superficial thrombophlebitis, this usually improves with warm compresses to the leg 2-3 times a day for 10 to 15 minutes at a time. Taking an anti-inflammatory medication such as Motrin or Aleve will generally help as well. Please follow- up with your doctor for further care. Please return if you worsen. We will also place you on steroids for your asthma exacerbation. [facility] prescription was sent to [facility] Forms: PCP List Discharge Date/Time: 12/30/22 21:22
[2022-12-30 21:21] VITALS: BP 123/95; O2SAT 100
--- NOTE | 2022-12-30 21:36 | Ultrasound Report ---
PROCEDURE: Duplex Ext Veins Left INDICATIONS: LL Px TECHNIQUE: Real-time imaging, as well as color and pulse Doppler interrogation, were performed of the lower extr emity deep veins from the inguinal ligament to the popliteal fossa. Attempted visualization of the ca lf veins was performed. COMPARISON: None. FINDINGS: The deep veins are normally compressible, and free of intraluminal thrombus. Color and pu lse Doppler demonstrate normal phasic intraluminal flow. There is normal augmentation response to di stal compression maneuver. There is a short segment of occlusive superficial venous thrombosis in the greater saphenous vein wit hin the proximal to mid left calf. IMPRESSION: 1. No evidence of deep venous thrombosis in the left lower extremity. 2. Superficial venous thrombosis within the greater saphenous vein in the left calf. Reviewed by: Lucio Johnson MD on 12/30/2022 9:34 PM PDT Approved by: Lucio Johnson MD on 12/30/2022 9:34 PM PDT Station ID: [id number]
== END 2022-12-30 21:22 | disposition home or self-care (01) ==
LOC: ED 18:54
DX: I80.02 Phlebitis and thrombophlebitis of superficial vessels of left lower extremity (principal); J45.901 Unspecified asthma with (acute) exacerbation; Z87.891 Personal history of nicotine dependence; Z79.899 Other long term (current) drug therapy
CPT/HCPCS: 93971; 99283; 99284; A9270

== ENCOUNTER 2023-02-20 13:40 | Outpatient (CLI) | payer MEDICARE, MEDICAID ==
--- NOTE | 2023-02-28 13:11 | Mammography Report ---
BILATERAL DIGITAL SCREENING MAMMOGRAM 3D/2D: 02/20/2023 CLINICAL: Routine screening. Comparison is made to exams dated: 12/04/2021 mammogram, 04/19/2020 mammogram, and 09/15/2018 mammogram - [facility]. Both breasts are almost entirely fatty (category a/<25% glandular tissue). There is a biopsy clip in the left breast. No significant masses, calcifications, or other findings are seen in either breast. There has been no significant interval change. IMPRESSION: NEGATIVE There is no mammographic evidence of malignancy. A 1 year screening mammogram is recommended. Based on the Tyrer Cuzick model (a risk assessment model) the patients lifetime risk is 2.8% and her 10 year risk is 1.4%. According to the ACR, ACS, and NCCN guidelines, an annual breast MRI exam arielle g with mammogram is recommended if the patients lifetime risk is 20% or greater. This exam was interpreted at Station ID: [id number]. NOTE: For mammograms, a report in lay terms will be sent to the patient. Approximately 15% of breast malignancies will not be visualized mammographically. In the management of a palpable breast mass, a negative mammogram must not discourage biopsy of a clinically suspicious lesion. Electronically Signed By: Prasad murcia/anabela:02/28/2023 10:34:24 letter sent: No_Letter ACR BI-RADS Category 1: Negative 3341F PARENCHYMAL PATTERN: (F) - The breast(s) demonstrate(s) diffuse fatty replacement. BI-RADS CATEGORY: (1) - 1 Mammogram [id number] 1 year screening LATERALITY: (B)
== END 2023-02-20 13:41 | disposition home or self-care (01) ==
LOC: DI.N 13:40
PROVIDERS: ATTEND Internal Medicine
DX: Z12.31 Encounter for screening mammogram for malignant neoplasm of breast (principal)

== ENCOUNTER 2023-07-30 10:30 | Outpatient (CLI) | payer MEDICARE, MEDICAID ==
--- NOTE | 2023-07-30 16:20 | XRAY Report ---
PROCEDURE: Chest 2V INDICATIONS: PRODUCTIVE COUGH TECHNIQUE: 2 views of the chest were acquired. COMPARISON: CT chest 05/03/2022 FINDINGS: Surgical changes and devices: None. Lungs and pleura: No pleural effusions or pneumothorax. Lungs are clear. Mediastinum: Mediastinal contours appear normal. Heart size is normal. Bones and chest wall: No suspicious bony lesions. Overlying soft tissues appear unremarkable. IMPRESSION: No acute cardiopulmonary process. Reviewed by: Sarah Singleton MD on 07/30/2023 4:18 PM PDT Approved by: Sarah Singleton MD on 07/30/2023 4:18 PM PDT Station ID: [id number]
== END 2023-07-30 10:45 | disposition home or self-care (01) ==
LOC: DI.N 10:30
PROVIDERS: ATTEND Nurse Practitioner
DX: R05.8 Other specified cough (principal)